=== PATIENT | male | born 1980 ===

== ENCOUNTER 2024-01-21 03:11 | Observation (INO) | payer OTHER, SELFPAY ==
[2024-01-21] VITALS (15 sets, daily range): BP systolic 106–146; BP diastolic 58–83; PULSE 68–97; RESP 12–20; TEMP 36.1–36.8; O2SAT 94–98; BMI 39.5
--- NOTE | 2024-01-21 03:22 | ED.GENADULT ---
[facility] - General Adult General Chief complaint: Abdominal Pain Stated complaint: abd pain, back pain Time Seen by Provider: 01/21/24 03:18 History of Present Illness HPI narrative: 43-year-old male reports prior known gallstones by imaging studies, no gallbladder surgery, complains of 3-4 hours duration epigastric area discomfort. No nausea or vomiting. Last bowel movement yesterday unremarkable. No black or red stools. No fevers or chills. No cough shortness of breath or chest pain. He denies pain with urination or frequency of urination. Denies injury, trauma, new activities. Had recent alcohol couple of days ago, previously drank heavily, less recent years. Denies history of known liver disease. Denies history of known pancreatitis. No known ulcers or reflux, never had prior upper endoscopy. Related Data Home Medications Medication Instructions Recorded Confirmed dextroamphetamine-amphetamine ER 1 cap PO QNOON 01/21/24 01/21/24 10 mg 24hr capsule,extend release dextroamphetamine-amphetamine ER 1 cap PO QAM 01/21/24 01/21/24 20 mg 24hr capsule,extend release dulaglutide 1.5 mg/0.5 mL 0.3 mg SUBCUT WEEKLY 01/21/24 01/21/24 subcutaneous pen injector (Trulicity) Allergies Allergy/AdvReac Type Severity Reaction Status Date / Time Sulfa (Sulfonamide AdvReac Unknown unknown Verified 06/27/21 15:08 Antibiotics) Review of Systems Review of Systems Narrative: as per HPI Patient History Social History Smoking Status: Current every day smoker alcohol intake: current Smoking Status: Current every day smoker Exam Narrative Exam Narrative: GENERAL: Well-developed patient, in mild distress. HEAD: Atraumatic. Normocephalic. EYES: Pupils equal round and reactive. Extraocular motions intact. No scleral icterus. No injection or drainage. ENT: Nose without bleeding, purulent drainage. Throat without erythema, tonsillar hypertrophy or exudate. Airway patent. NECK: Trachea midline. Non tender CARDIOVASCULAR: Regular rate and rhythm without murmurs, gallops, or rubs. RESPIRATORY: Clear to auscultation. Breath sounds equal bilaterally. No wheezes, rales, or rhonchi. GASTROINTESTINAL: Mildly obese, some tenderness epigastrium, non distended, no guarding or rebound, unremarkable bowel tones. No obvious fluid wave. EXTREMITIES: No edema or joint tenderness. BACK: Nontender without deformity or crepitance. No flank tenderness. NEURO: AOx3. SKIN: No rash or erythema of visible areas Initial Vital Signs Initial Vital Signs: Vital Signs Temperature 98.3 F 01/21/24 03:24 Pulse Rate 90 01/21/24 03:24 Respiratory Rate 12 01/21/24 03:24 Blood Pressure 137/83 01/21/24 03:24 Pulse Oximetry 96 01/21/24 03:24 Oxygen Delivery Method Room Air 01/21/24 03:24 Course Orders Ordered: Acetaminophen (Acetaminophen 325 Mg Tablet) 975 mg PO NOW PRN PRN Reason: Pain, Moderate (4-6) Famotidine (Famotidine 20 Mg/2 Ml Vial) 20 mg IV NOW [facility] Last Admin: 01/21/24 04:07 Dose: 20 mg Documented By: Piperacillin Sod/Tazobactam (Sod 3.375 gm/ Sodium Chloride) 100 mls @ 25 mls/hr IV Q8H SIRI Stop: 01/21/24 15:59 Last Admin: 01/21/24 14:06 Dose: 25 mls/hr Documented By: DAVID Lactated Ringer's (Lactated Ringers) 1,000 mls @ 42 mls/hr IV CONT [facility] Last Infusion: 01/21/24 14:11 Dose: 0 mls/hr Documented By: Admin: 01/21/24 10:25 Dose: 42 mls/hr Documented By: RIVER Discontinued Medications Lactated Ringer's (Lactated Ringers) 1,000 mls @ 1,000 mls/hr IV BOLUS ONE Stop: 01/21/24 06:26 Last Infusion: 01/21/24 07:10 Dose: Infused Documented By: Admin: 01/21/24 05:34 Dose: 1,000 mls/hr Documented By: Piperacillin Sod/Tazobactam (Sod 4.5 gm/ Sodium Chloride) 100 mls @ 200 mls/hr IV NOW ONE Stop: 01/21/24 06:39 Last Infusion: 01/21/24 08:11 Dose: Infused Documented By: Admin: 01/21/24 07:14 Dose: 200 mls/hr Documented By: Piperacillin Sod/Tazobactam (Sod 3.375 gm/ Sodium Chloride) 100 mls @ 25 mls/hr IV Q8H [facility] Stop: 01/21/24 10:01 Last Admin: 01/21/24 10:24 Dose: Not Given Documented By: RIVER Lorazepam (Lorazepam 2 Mg/Ml Inj) 1 mg IV NOW ONE Stop: 01/21/24 08:50 Last Admin: 01/21/24 08:53 Dose: 1 mg Documented By: ANURAG Nicotine (Nicotine 14 Patch) 14 mg TOP NOW ONE Stop: 01/21/24 08:50 Last Admin: 01/21/24 09:18 Dose: 14 mg Documented By: ANURAG Vital Signs Vital signs: Vital Signs - 8 hr 01/21/24 03:24 01/21/24 04:02 01/21/24 04:03 Temperature 98.3 F Pulse Rate 90 85 86 Respiratory Rate 12 16 Blood Pressure 137/83 135/78 Pulse Oximetry 96 98 94 Oxygen Delivery Method Room Air Room Air 01/21/24 04:30 01/21/24 04:49 01/21/24 04:49 Temperature Pulse Rate 90 97 H 95 H Respiratory Rate 18 Blood Pressure 136/80 Pulse Oximetry 94 96 Oxygen Delivery Method Room Air 01/21/24 05:02 01/21/24 05:03 01/21/24 05:03 Temperature Pulse Rate 92 H 91 H Respiratory Rate Blood Pressure 146/66 H Pulse Oximetry 97 96 Oxygen Delivery Method 01/21/24 05:30 01/21/24 05:31 01/21/24 05:31 Temperature Pulse Rate 84 79 Respiratory Rate Blood Pressure 136/63 Pulse Oximetry 96 95 Oxygen Delivery Method 01/21/24 06:00 01/21/24 06:00 Temperature Pulse Rate 76 Respiratory Rate Blood Pressure 120/58 L Pulse Oximetry 96 Oxygen Delivery Method Medical Decision Making Lab Data Lab results reviewed: Yes I reviewed the patient's lab results. 01/21/24 03:52 01/21/24 03:52 Labs: Lab Results 01/21/24 01/21/24 Range/Units 03:52 05:05 WBC 13.8 H (4.5-11.0) X10^3/uL RBC 6.98 H (4.5-5.9) X10^6/uL Hgb 18.7 H (13.5-17.5) g/dL Hct 55.5 H (41-53) % MCV 79.5 L (80-100) fL MCH 26.7 (26-34) PG MCHC 33.6 (30-36) % RDW 16.2 H (11.6-14.8) % Plt Count 196 (150-400) X10^3/uL Neut % (Auto) 72.0 (50-75) % Lymph % (Auto) 16.8 L (25-40) % [place] % (Auto) 8.5 (3-14) % Eos % (Auto) 1.9 L (2-4) % Baso % (Auto) 0.8 (0-2) % Neut # (Auto) 9900 H (4508-9873) /uL Lymph # (Auto) 2300 (7439-2014) /uL [place] # (Auto) 1200 H (0-900) /uL Eos # (Auto) 300 (0-450) /uL Baso # (Auto) 100 (0-100) /uL Platelet Estimate Adequate on smear RBC Morphology Normal morphology Sodium 136 L (137-145) mmol/L Potassium 3.7 (3.4-5.1) mmol/L Chloride 105 (98-107) mmol/L Carbon Dioxide 26 (22-32) mmol/L BUN 16 (9-20) mg/dL Creatinine 0.92 (0.66-1.25) mg/dL Estimated GFR > 60 (>60) mL/min BUN/Creatinine Ratio 17.4 (6-22) Glucose 156 H (70-100) mg/dL Calcium 9.1 (8.4-10.2) mg/dL Total Bilirubin 0.9 (0.2-1.3) mg/dL AST 30 (17-59) IU/L ALT 42 (<50) IU/L Alkaline Phosphatase 91 (38-126) U/L Total Protein 7.8 (6.3-8.2) g/dL Albumin 4.5 (3.5-5.0) g/dL Globulin 3.3 (1.7-4.1) g/dL Albumin/Globulin Ratio 1.4 (1.0-2.8) Lipase 166 (23-300) U/L Urine RBC None seen (0-5/HPF) Urine WBC None seen (0-5/HPF) Ur Squamous Epith Cells 0-1 /hpf (0-5/HPF) Urine Bacteria Occasional (0-1) (None) Hyaline Casts 0-1/lpf (None) Urine Mucus 1+ H (Negative) Ur Culture Indicated? Cult not indicated Vol Urine Centrifuged 10ml (spun) Urine Dip Bedside Urine Glucose Negative Bedside Urine Bilirubin - Negative Bedside Urine Ketone - Negative Urine Specific [place] 1.025 Bedside Urine Occult Blood - Negative Bedside Urine pH 5.5 Bedside Urine Protein +/- 15 Bedside Urine Urobilinogen +/- 1mg Bedside Urine Nitrite - Negative Bedside Urine Leukocytes - Negative Esterase Point of care testing: Urine Dip Bedside Urine Glucose Negative Bedside Urine Bilirubin - Negative Bedside Urine Ketone - Negative Urine Specific [place] 1.025 Bedside Urine Occult Blood - Negative Bedside Urine pH 5.5 Bedside Urine Protein +/- 15 Bedside Urine Urobilinogen +/- 1mg Bedside Urine Nitrite - Negative Bedside Urine Leukocytes - Negative Esterase [facility] Narrative Medical decision making narrative: 44-year-old male with a few hours duration of upper abdominal discomfort, history of kidney stone or gallstone (he cannot recall which), no prior cholecystectomy, afebrile, sirs screen negative, epigastric area discomfort mild on exam, no right upper quadrant or left upper quadrant or periumbilical or lower quadrants abdominal tenderness. No ventral hernias obvious. White blood cell count [id number], LFTs unremarkable, renal function adequate. CT abdomen and pelvis imaging requested. He declines pain medications for now. We will give IV Pepcid antacid pending imaging study results and further lab test results LFTs unremarkable, lipase normal. CT abdomen and pelvis report pending. CT abdomen and pelvis. Impressions: ?Gallstone as well as up to 10 mm gallbladder wall thickening with/without pericholecystic fluid. Correlate clinically for acute cholecystitis. Apparent circumferential wall thickening up to 8 mm of the wall of some of the left-sided jejunal small bowel loops without surrounding fat stranding may be artifactual in nature, secondary to underdistention versus less likely due to nonspecific jejunitis. ? See teleradiology report Ultrasound right upper quadrant abdomen requested Verbal sono tech report right upper quadrant ultrasound: She feels there is 1.7 cm stone that is stuck in the gallbladder neck, not dislodged with changes in position, gallbladder wall is thickened at 5.5 mm diffusely, with pericholecystic fluid present, consistent with acute calculous cholecystitis. We will consult General surgery Case discussed with general surgery Dr. Haider, admit to his service, would like first dose antibiotic IV Zosyn, anticipate surgery later today, keep NPO. [id number], right upper quadrant abdominal ultrasound radiology report. Impression: ?17 mm nonmobile gallbladder neck stone. Gallbladder wall thickening measuring up to 6 mm. Sonographic Coello's sign could not be evaluated since Mr. Franks is medicated. In the presence of appropriate clinical symptomology before pain medication administration, findings are concerning for acute cholecystitis.? See tele radiology report, seems consistent with sono tech findings as verbally reported prior Critical Care Time Critical Care Time Critical Care Time: Yes Total Critical Care Time: 35 Attestation: The high probability of a clinically significant, sudden or life threatening deterioration of the [abdominopelvic, gastrointestinal] system(s) required my full and direct attention, intervention and personal management. The aggregate critical care time was [35] minutes. This time is in addition to time spent performing reported procedures but includes the following: [x] Data Review and interpretation [x] Patient assessment and monitoring of vital signs [x] Documentation [x] Medication orders and management Discharge Plan Departure Patient Disposition: Admitted to Surgery Clinical Impression: Acute calculous cholecystitis Admit Date/Time: 01/21/24 06:57 Admit Provider: Misael Haider
[2024-01-21 04:05] LABS: Basophils Absolute Auto 100 /uL (0-100); Basophils Percent Auto 0.8 % (0-2); Eosinophils Absolute Auto 300 /uL (0-450); Eosinophils Percent Auto 1.9 % (2-4); Hematocrit 55.5 % (41-53); Hemoglobin 18.7 g/dL (13.5-17.5); Lymphocytes Absolute Auto 2300 /uL (1100-4500); Lymphocytes Percent Auto 16.8 % (25-40); Mean Corpuscular HGB Conc 33.6 % (30-36); Mean Corpuscular Hemoglobin 26.7 PG (26-34); Mean Corpuscular Volume 79.5 fL (80-100); Monocytes Absolute Auto 1200 /uL (0-900); Monocytes Percent Auto 8.5 % (3-14); Neutrophils Absolute Auto 9900 /uL (1500-7000); Platelet Count 196 X10^3/uL (150-400); Red Cell Distribution Width 16.2 % (11.6-14.8); White Blood Cell Count 13.8 X10^3/uL (4.5-11.0)
[2024-01-21] MEDS: FAMOTIDINE 20 MG/2 ML VIAL IV (04:07)
[2024-01-21 04:11] LABS: Alanine Aminotransferase 42 IU/L (<50); Albumin 4.5 g/dL (3.5-5.0); Albumin Globulin Ratio 1.4 (1.0-2.8); Alkaline Phosphatase 91 U/L (38-126); Aspartate Aminotransferase 30 IU/L (17-59); BUN Creatinine Ratio 17.4 (6-22); Bilirubin Total 0.9 mg/dL (0.2-1.3); Blood Urea Nitrogen 16 mg/dL (9-20); Calcium 9.1 mg/dL (8.4-10.2); Carbon Dioxide 26 mmol/L (22-32); Chloride 105 mmol/L (98-107); Estimated Glomerular Filt Rate > 60 mL/min (>60); Globulin 3.3 g/dL (1.7-4.1); Glucose 156 mg/dL (70-100); HEMOLYSIS < 15 (0-50); Lipase 166 U/L (23-300); Potassium 3.7 mmol/L (3.4-5.1); Sodium 136 mmol/L (137-145); Total Protein 7.8 g/dL (6.3-8.2)
[2024-01-21 04:22] LABS: Add Manual Diff / Slide Review SLIDE REVIEW; Red Blood Cell Count 6.98 X10^6/uL (4.5-5.9)
[2024-01-21 04:23] LABS: Platelet Estimate Adequate on smear
[2024-01-21 04:24] LABS: RBC Morphology Normal Morphology
--- NOTE | 2024-01-21 04:27 | DI.CT.S_ITS ---
PROCEDURE: CT ABDOMEN PELVIS W CON INDICATIONS: abd pain TECHNIQUE: After the administration of intravenous contrast, axial sections acquired from the lung bases to the pubic symphysis. Coronal and sagittal reformats were performed. For radiation dose reduction, the following was used: automated exposure control, adjustment of mA and/or kV according to patient size. COMPARISON: [facility], , US ABDOMEN LIMITED, 01/21/2024, 6:08. FINDINGS: Image quality: Diagnostic. Lower Chest: No significant findings. ABDOMEN: Liver: No solid mass. Steatosis. Gallbladder: Gallbladder wall is thickened with appearance of pericholecystic fluid. Stone is present in the dependent portion. Biliary ducts: No biliary dilation. No visualized choledocholithiasis. Pancreas: No ductal dilation. Spleen: Size is within normal limits. Adrenal Glands: No adrenal nodules. Kidneys and Ureters: No hydronephrosis. No solid mass. No complex renal cystic lesion which requires follow up. Stomach and Bowel: Normal colonic caliber, without obstruction. Minimal thickening of digital bowel loops overall nonspecific. Appendix is normal. Peritoneum: No abnormal intraperitoneal fluid. No free air. Ventral Wall: No significant ventral hernia. Abdominal Nodes: No retroperitoneal or mesenteric adenopathy by size criteria. Vessels: Aorta and inferior vena cava are normal in size. PELVIS: Pelvic Organs: Unremarkable. Bladder: No bladder wall thickening, accounting for underdistention. Pelvic Nodes: No enlarged lymph nodes. Miscellaneous: No inguinal hernias are seen. Bones: No aggressive osseous abnormality. IMPRESSION: Thickened gallbladder wall with suspected pericholecystic fluid as well as gallstone. Appearance is most suggestive cholelithiasis with cholecystitis. Please see abdomen ultrasound for further details. The above findings are concordant with preliminary report. Dictated by: Muriel Cuevas M.D. on 01/21/2024 at 9:03 Approved by: Muriel Cuevas M.D. on 01/21/2024 at 9:06
--- NOTE | 2024-01-21 05:13 | DI.US.S_ITS ---
PROCEDURE: US ABDOMEN LIMITED INDICATIONS: RUQ/epig abd pain TECHNIQUE: Real-time scanning was performed of the abdominal and retroperitoneal organs, with image documentation. COMPARISON: [facility], CT, CT ABDOMEN PELVIS W CON, 01/21/2024, 4:38. FINDINGS: Liver: Increased liver echogenicity with posterior attenuation, most consistent with moderate to severe steatosis. Gallbladder: Non mobile gallstone at the neck. Focal wall thickening and pericholecystic fluid. Negative sonographic Coello sign, although the patient is medicated. Biliary ducts: Intrahepatic bile ducts are non-dilated. Extrahepatic bile duct caliber measures 4.5 mm. Normal is 6-7 mm or less in diameter, or 10 mm or less post-cholecystectomy. Pancreas: Visualized portions of the pancreas are sonographically normal. Miscellaneous: No free abdominal fluid. IMPRESSION: Acute cholecystitis. No evidence of choledocholithiasis. Dictated by: Haseeb Mark M.D. on 01/21/2024 at 8:16 Approved by: Haseeb Mark M.D. on 01/21/2024 at 8:17
[2024-01-21] MEDS: LACTATED RINGERS 1,000 ML 1000 ML IV (05:34)
[2024-01-21 05:56] LABS: Bacteria Urine Occasional (0-1); Culture Indicated Urine Cult Not Indicated; Hyaline Casts Urine 0-1/LPF; Mucus Urine 1+ (Negative); RBC Urine None Seen (0-5/HPF); Squamous Epithelial Cell Urine 0-1 /HPF (0-5/HPF); Urine Volume 10mL (spun); WBC Urine None Seen (0-5/HPF)
[2024-01-21] MEDS: PIPERACILLIN/TAZO 4.5 GM in SODIUM CHLORIDE 0.9% 100 ML IV (07:14)
[2024-01-21] MEDS: LORazepam 2 MG/ML INJ 1 MG IV (08:53)
[2024-01-21] MEDS: NICOTINE 14 PATCH 14 MG TOP (09:18)
[2024-01-21] MEDS: LACTATED RINGERS 1,000 ML 42 ML IV (10:25)
[2024-01-21] MEDS: PIPERACILLIN/TAZO 3.375 GM in SODIUM CHLORIDE 0.9% 100 ML IV (14:06)
--- NOTE | 2024-01-21 19:38 | PC.NURSE ---
Notified by RN and Coordinator that patient was requesting to leave AMA after speaking with Dr. Retana, and being notified the surgical procedure would not occur this evening. I was able to speak with the patient and his significant other. They were both very frustrated with care and bedside manner of the provider. They did not wish to sign the AMA form, as they do not agree. Both asked appropriate questions regarding hospital procedure, care providers, medical records and insurance processes. Educated to return to the ED if condition worsens. Patient's significant other reports that she discontinued the patients IV. Patient left the facility at 1935.
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
== END 2024-01-21 19:35 | disposition home or self-care (01) ==
LOC: ED 06:35 → AC 06:57
PROVIDERS: Admitting Provider Surgery; Emergency Provider Emergency Medicine; Referring Provider Emergency Medicine; Visit Provider Surgery
DX: K80.00 Calculus of gallbladder with acute cholecystitis without obstruction (principal); F17.210 Nicotine dependence, cigarettes, uncomplicated
CPT/HCPCS: 36415; 74177; 76705; 80053; 81003; 81015; 83690; 85025; 96361; 96365; 96375; 99284; G0378; J2060; J2405; J2543; J2704; J3010; Q9967